=== PATIENT | female | born 1960 | race Hispanic/Latino ===

== ENCOUNTER → 2019-10-04 | Outpatient (CLI) | payer BC | END | disposition home or self-care (01) | LOC: SHCH 10:00 | PROVIDERS: ATTEND Internal Medicine Cardiovascular Disease | DX: I51.7 Cardiomegaly (principal); R01.1 Cardiac murmur, unspecified | CPT/HCPCS: 93306 ==

== ENCOUNTER → 2019-10-08 | Outpatient (CLI) | payer BC ==
[~2019-10-08] MED LIST: ACET1TAB25 PO; ASPI-1197 PO; CYAN-35 PO; ERGO500014 PO; FISH1CAP63 PO; FOLI1 PO; REGADENOSON 0.4 MG/5 ML PF SYG IVP SCH; ROSU10TA22 PO; SULF1TAB42 PO; UBID100C45 PO; VITAD50000 PO; folic acid PO; vitamin b12 PO
== END | disposition home or self-care (01) ==
LOC: SHCH 08:59
PROVIDERS: ATTEND Internal Medicine Cardiovascular Disease
DX: R01.1 Cardiac murmur, unspecified (principal)
CPT/HCPCS: 78452; 93017; 96374; A9500 ×2; J2785

== ENCOUNTER 2019-12-12 06:11 | Day surgery (SDC) | payer BC ==
[2019-12-11 13:31] VITALS: BP 117/52
[~2019-12-12] VITALS: Ht 162.6 cm; Wt 94.6 kg
[2019-12-12] VITALS (18 sets, daily range): BP systolic 102–135; BP diastolic 47–69
[~2019-12-12 06:11] MED LIST changes: -ACET1TAB25 PO; +CEFAZOLIN SODIUM 1 GM VIAL IVP SCH; -ERGO500014 PO; -FOLI1 PO; -REGADENOSON 0.4 MG/5 ML PF SYG IVP SCH; -SULF1TAB42 PO; -vitamin b12 PO
[2019-12-12] MEDS ORDERED: CEFAZOLIN SODIUM 1 GM VIAL ONE (06:22)
[2019-12-12] MEDS ORDERED: LACTATED RINGERS 1000ML 1,000 ML IV ONE (06:22)
[2019-12-12] MEDS ORDERED: ONDANSETRON HCL 4 MG/2 ML VIAL ONE ×2 (07:37→09:09)
[2019-12-12] MEDS ORDERED: PROPOFOL 10 MG/ML 20ML VIAL IV ONE (07:37)
[2019-12-12] MEDS ORDERED: LIDOCAINE PF 2% 5ML ABBOJECT ONE (07:37)
[2019-12-12] MEDS ORDERED: DEXAMETHASONE SOD PHOSPHATE 10MG/ML 1ML VIAL ONE ×2 (07:37→09:09)
[2019-12-12] MEDS ORDERED: MIDAZOLAM HCL 1 MG/ML 2ML VIAL ONE (07:37)
[2019-12-12] MEDS ORDERED: FENTANYL CITRATE PF 50 MCG/1 ML 2ML VIAL ONE ×2 (07:38→08:25)
[2019-12-12] MEDS ORDERED: GENTAMICIN SULFATE 80 MG/2 ML VIAL ONE (07:56)
[2019-12-12] MEDS ORDERED: EPHEDRINE SULFATE 50 MG/ML AMPULE ONE (08:13)
[2019-12-12] MEDS ORDERED: MEPERIDINE-PF 25 MG/ML SYG ONE ×2 (08:39→09:36)
[2019-12-12] MEDS ORDERED: SULF1TAB42 PO (09:14)
[2019-12-12] MEDS ORDERED: ACET1TAB25 PO (09:14)
[2019-12-12 12:40] LABS: BF LYMPHOCYTE 53 %; BF MESOTHELIAL 32 %; BF MONOCYTE 12 %
[2019-12-12 13:15] LABS: APPEARANCE BODY FLUID CLEAR (CLEAR); BODY FLUID RBC 323 /cu. mm.; BODY FLUID WBC 124 /cu. mm.; COLOR,BODY FLUID YELLOW (LT YELLOW); SPECIMENTYPE,BODY FLUID SYNOVIAL
[2019-12-12 20:56] LABS: CRYSTALS, SYNOVIAL FLUID SEE SEPARATE REPORT
== END 2019-12-12 11:14 | disposition home or self-care (01) ==
LOC: DAH 06:11
PROVIDERS: ATTEND Orthopaedic Surgery
DX: S83.242A Other tear of medial meniscus, current injury, left knee, initial encounter (principal); M22.42 Chondromalacia patellae, left knee; E66.01 Morbid (severe) obesity due to excess calories; Z68.35 Body mass index [BMI] 35.0-35.9, adult; E78.5 Hyperlipidemia, unspecified; G89.29 Other chronic pain; M25.462 Effusion, left knee; M17.12 Unilateral primary osteoarthritis, left knee; X58.XXXA Exposure to other specified factors, initial encounter; Y93.89 Activity, other specified; Y92.89 Other specified places as the place of occurrence of the external cause; Y99.8 Other external cause status; Z20.828 Contact with and (suspected) exposure to other viral communicable diseases
CPT/HCPCS: 29881; 87071; 87076; 87205; 89051; 89060; A4215; A4221; A4222; A4223; A4606; A4649 ×2; A4663; A4930 ×2; A5120; A6223; C9803; J0690; J1100 ×2; J1580; J2001; J2175 ×2; J2250; J2405 ×2; J2704; J3010 ×2; J3490; J7120 ×2; U0003

== ENCOUNTER 2019-12-16 17:46 | Inpatient (IN) | payer BC ==
[~2019-12-16] VITALS: Ht 160 cm; Wt 91.1 kg
[~2019-12-16 17:46] MED LIST changes: +ACET1TAB25 PO; -CEFAZOLIN SODIUM 1 GM VIAL IVP SCH; +SULF1TAB42 PO
[2019-12-16] MEDS ORDERED: ACETAMINOPHEN EXTRA STRENGTH 500 MG TABLET ONE (18:11)
[2019-12-16] MEDS ORDERED: ONDANSETRON HCL 4 MG/2 ML VIAL ONE (18:11)
[2019-12-16 18:24] LABS: APPEARANCE,URINE Cloudy (CLEAR); BASOPHILS % (AUTO) 0.2 % (0.0-5.0); BILIRUBIN,URINE Negative (NEGATIVE); COLOR,URINE Yellow (YELLOW); EOSINOPHILS % (AUTO) 5.5 % (0.0-8.0); GLUCOSE, URINE (UA) Negative (NEGATIVE); HEMATOCRIT 37.6 % (36-48); KETONES,URINE Negative (NEGATIVE); LEUKOCYTE ESTERASE ,URINE Negative (NEGATIVE); LYMPHOCYTES % (AUTO) 5.8 % (21.0-51.0); MEAN CORPUSCULAR HEMOGLOBIN 29.1 pg (27.0-33.0); MEAN CORPUSCULAR HGB CONC 33.2 g/dL (32.0-36.0); MEAN CORPUSCULAR VOLUME 87.6 fL (79-99); MONOCYTES % (AUTO) 5.5 % (3.0-13.0); NEUTROPHILS % (AUTO) 81.9 % (40.0-77.0); NITRATE,URINE Negative (NEGATIVE); OCCULT BLOOD,URINE Trace (NEGATIVE); PLATELET COUNT (AUTO) 182 K/uL (130-400); PROTEIN,URINE Negative (NEGATIVE); RED BLOOD CELL COUNT(AUTO) 4.29 MIL/uL (4.00-5.50); RED CELL DISTRIBUTION WIDTH 13.9 % (11.0-15.5); WHITE BLOOD COUNT (AUTO) 5.5 K/uL (4.8-10.8)
[2019-12-16 18:30] LABS: BACTERIA,URINE None Seen /HPF (None Seen); MUCUS,URINE Few LPF (None Seen); RBC,URINE 0-1 /HPF (0-1); SQUAMOUS EPITHELIAL CELL,UR 0-2 /HPF (0-2); WBC,URINE 0-1 /HPF (0-1)
[2019-12-16 18:37] LABS: CARBON DIOXIDE 24 mmol/L (21-32); CHLORIDE 101 mmol/L (101-111); CREATININE 0.8 mg/dL (0.5-1.5); GLOMERULAR FILTR. RATE CALC 78 mL/min (>60); GLUCOSE,RANDOM 161 mg/dL (70-105); POTASSIUM 4.1 mmol/L (3.5-5.1); SODIUM SERUM 137 mmol/L (136-145); UREA NITROGEN, BLOOD 6 mg/dL (7-18)
[2019-12-16 18:42] LABS: INR 0.99 (0.85-1.15); PARTIAL THROMBOPLASTIN TIME 29.3 SEC (26.3-35.5); PROTHROMBIN TIME 10.7 SEC (9.6-11.6)
[2019-12-16 18:48] LABS: ALANINE AMINOTRANSFERASE 42 U/L (12-78); ALBUMIN 4.3 g/dL (3.5-5.0); ASPARTATE AMINOTRANSFERASE 28 U/L (10-37); BILIRUBIN,TOTAL 0.5 mg/dL (0.2-1.0); CREATINE KINASE, TOTAL 33 U/L (21-232); MYOGLOBIN 25 ng/mL (10-92); TOTAL PROTEIN, SERUM 8.3 g/dL (6.0-8.3); TROPONIN I < 0.04 ng/mL (0.00-0.06)
[2019-12-16] MEDS ORDERED: DiphenhydrAMINE HCL 50 MG/ML VIAL ONE (19:25)
[2019-12-16] MEDS ORDERED: PROCHLORPERAZINE EDISYLATE 10 MG/2 ML VIAL ONE (19:26)
[2019-12-16] MEDS ORDERED: SODIUM CHLORIDE 0.9% 50 ML IV ONE (19:28)
[2019-12-16] MEDS ORDERED: LIDOCAINE HCL 1% 20 ML VIAL ONE (19:37)
[2019-12-16] MEDS ORDERED: CEFEPIME HCL 1 GM VIAL ONE (20:38)
[2019-12-16] MEDS ORDERED: MORPHINE SULFATE 2 MG/ML 1ML SYG IVP PRN (21:00)
[2019-12-16] MEDS ORDERED: COMPOUND IV REFRIGERATED 1 EACH IVSOLN MISC PRN (21:00)
[2019-12-16] MEDS ORDERED: ONDANSETRON 4 MG TABLET PO PRN (21:00)
[2019-12-16] MEDS ORDERED: VANCOMYCIN PROTOCOL PER PHARMACY IV SCH (21:00)
[2019-12-16] MEDS ORDERED: VANCOMYCIN 1.5 GM in SODIUM CHLORIDE 0.9% 250 ML IV SCH (21:00)
[2019-12-16] MEDS ORDERED: ACETAMINOPHEN 325 MG TAB PO PRN (21:00)
[2019-12-17] MEDS ORDERED: CEFEPIME HCL 1 GM VIAL ONE (03:53)
[2019-12-17] MEDS ORDERED: ACETAMINOPHEN 325 MG TAB ONE (03:53)
[2019-12-17 04:17] LABS: BASOPHILS % (AUTO) 0.2 % (0.0-5.0); EOSINOPHILS % (AUTO) 6.1 % (0.0-8.0); HEMATOCRIT 34.6 % (36-48); LYMPHOCYTES % (AUTO) 9.5 % (21.0-51.0); MEAN CORPUSCULAR HEMOGLOBIN 29.1 pg (27.0-33.0); MEAN CORPUSCULAR HGB CONC 32.9 g/dL (32.0-36.0); MEAN CORPUSCULAR VOLUME 88.3 fL (79-99); MONOCYTES % (AUTO) 7.8 % (3.0-13.0); NEUTROPHILS % (AUTO) 75.1 % (40.0-77.0); PLATELET COUNT (AUTO) 153 K/uL (130-400); RED BLOOD CELL COUNT(AUTO) 3.92 MIL/uL (4.00-5.50); RED CELL DISTRIBUTION WIDTH 14.2 % (11.0-15.5); WHITE BLOOD COUNT (AUTO) 4.7 K/uL (4.8-10.8)
[2019-12-17 04:32] LABS: CREATININE 0.7 mg/dL (0.5-1.5)
[2019-12-17 04:35] LABS: ALBUMIN 3.8 g/dL (3.5-5.0); BILIRUBIN,TOTAL 0.6 mg/dL (0.2-1.0); MAGNESIUM 2.1 mg/dL (1.80-2.40); TOTAL PROTEIN, SERUM 7.6 g/dL (6.0-8.3)
[2019-12-17] MEDS ORDERED: CEFEPIME HCL 1 GM VIAL IVP SCH (05:00)
[2019-12-17 05:42] LABS: ERYTHROCYTE SEDIMENTATION RATE 28 MM/HR (0-30)
[2019-12-17] MEDS ORDERED: FOLI1 PO (09:03)
[2019-12-17] MEDS ORDERED: ERGO500014 PO (09:03)
[2019-12-17 09:11] VITALS: BP 124/42
[2019-12-17] MEDS ORDERED: METHYLPREDNISOLONE SOD SUCC 40MG/ML 1ML IVP SCH (14:30)
[2019-12-17] MEDS: FAMOTIDINE 20MG TAB 20 MG TAB PO SCH ×2 (14:30→20:05)
[2019-12-17] MEDS ORDERED: FAMOTIDINE 20MG TAB 20 MG TAB ONE (15:00)
[2019-12-17] MEDS ORDERED: METHYLPREDNISOLONE SOD SUCC 40MG/ML 1ML ONE (15:00)
[2019-12-17] MEDS ORDERED: DIPHENHYDRAMINE HCL 25 MG CAPSULE ONE (15:01)
[2019-12-17 16:45] VITALS: BP 124/72
[2019-12-17 20:00] VITALS: BP 128/71
[2019-12-17] MEDS ORDERED: PHENOBARBITAL SODIUM 65 MG/ML ML ONE ×2 (22:02→22:03)
[2019-12-17] MEDS: DIPHENHYDRAMINE HCL 25 MG CAPSULE PO PRN (23:51)
[2019-12-18] VITALS: BP 117/70
[2019-12-18 04:00] VITALS: BP 111/58
[2019-12-18 08:00] VITALS: BP 125/52
[2019-12-18] MEDS: DIPHENHYDRAMINE HCL 25 MG CAPSULE PO PRN ×2 (09:12→17:43)
[2019-12-18] MEDS: FAMOTIDINE 20MG TAB 20 MG TAB PO SCH ×2 (09:14→20:45)
[2019-12-18] MEDS ORDERED: METHYLPREDNISOLONE SOD SUCC 40MG/ML 1ML IVP SCH (11:00)
[2019-12-18 12:00] VITALS: BP 133/63
--- NOTE | 2019-12-18 13:48 | NUR ---
PROSPER- W PATIENT AT [facility], PATIENT LIVES W SPOUSE, IS ACTIVE, EMPLOYED, INDEPENDENT, NO DME EXCEPT CRUTCHES AT THIS TIME SECOND TO ARTHROSCOPY, EMPLOYED, DRIVES, HOME SAFE AND ACCESSIBLE, SPOUSE TO DRIVE HOME, ROVERTO TO FOLLOW Addendum: 12/18/19 at 1350 by MIGUEL SALAZAR RN CM Amended: Links added.
[2019-12-18 16:17] VITALS: BP 137/79
--- NOTE | 2019-12-18 16:47 | NUR ---
WOUND CARE WOUND CARE TO LEFT KNEE, CLEAN WITH BETADINE, COVER WITH BANDAID, PATIENT TOLERATED WITHOUT INCIDENT.
[2019-12-18 20:22] VITALS: BP 145/83
[2019-12-19] VITALS: BP 118/78
[2019-12-19] MEDS: DIPHENHYDRAMINE HCL 25 MG CAPSULE PO PRN (02:26)
[2019-12-19 04:25] VITALS: BP 106/52
[2019-12-19 05:47] LABS: MEAN CORPUSCULAR HEMOGLOBIN 28.9 pg (27.0-33.0); MEAN CORPUSCULAR HGB CONC 32.4 g/dL (32.0-36.0); MEAN CORPUSCULAR VOLUME 89.2 fL (79-99); RED BLOOD CELL COUNT(AUTO) 3.81 MIL/uL (4.00-5.50); RED CELL DISTRIBUTION WIDTH 13.8 % (11.0-15.5); WHITE BLOOD COUNT (AUTO) 6.1 K/uL (4.8-10.8)
[2019-12-19 06:18] LABS: ALBUMIN 3.5 g/dL (3.5-5.0); BILIRUBIN,TOTAL 0.3 mg/dL (0.2-1.0); CREATININE 0.6 mg/dL (0.5-1.5); MAGNESIUM 2.1 mg/dL (1.80-2.40); POTASSIUM 3.6 mmol/L (3.5-5.1); TOTAL PROTEIN, SERUM 7.4 g/dL (6.0-8.3)
[2019-12-19 08:28] VITALS: BP 118/61
[2019-12-19] MEDS: FAMOTIDINE 20MG TAB 20 MG TAB PO SCH (08:31)
[2019-12-19 11:00] VITALS: BP 125/76
[2019-12-19 15:00] VITALS: BP 137/76
--- NOTE | 2019-12-19 15:42 | NUR ---
DISCHARGE INSTRUCTIONS GIVEN TO PATIENT MADE AWARE OF FOLLOW UP APPOINTMENT WITH DR SHIN. AWARE OF INCISIONAL CARE WITH BETADINE AND BANDAID DAILY. PATIENT CURRENTLY HAS MINOR SWELLING AND REDNESS TO LEFT KNEE. DENIES PAIN. AMBULATING WITH CRUTCHES. IV REMOVED. ALL QUESTIONS ANSWERED.
== END 2019-12-19 16:15 | disposition home or self-care (01) | DRG 864 ==
LOC: EDH 17:46 → EDHIP 20:20 → 3AH 23:17 → EDHIP 23:37 → 4BH 12-17 08:47
PROVIDERS: ADMIT Internal Medicine Infectious Disease; ATTEND Internal Medicine Infectious Disease
DX: R50.82 Postprocedural fever (principal); R21 Rash and other nonspecific skin eruption; E78.5 Hyperlipidemia, unspecified; I10 Essential (primary) hypertension; R53.81 Other malaise; M19.90 Unspecified osteoarthritis, unspecified site; T36.8X5A Adverse effect of other systemic antibiotics, initial encounter; Z68.35 Body mass index [BMI] 35.0-35.9, adult; Y92.89 Other specified places as the place of occurrence of the external cause; Z88.6 Allergy status to analgesic agent; Z88.8 Allergy status to other drugs, medicaments and biological substances; Z88.5 Allergy status to narcotic agent; Z90.721 Acquired absence of ovaries, unilateral
CPT/HCPCS: 36415; 70450; 71045; 73562; 80053; 81001; 82550; 83605; 83735; 83874; 84145; 84484; 85025; 85027; 85610; 85651; 85730; 86900; 86901; 87040; 87088; 87426; 93005; G0378; J0692; J0780; J1200; J2405; J2560; J2920; J3370; J7050; Q0163; U0003

== ENCOUNTER → 2020-11-06 | Outpatient (CLI) | payer BC ==
[~2020-11-06] MED LIST changes: -ACET1TAB25 PO; +ERGO500093 PO; +FOLI1 PO; -SULF1TAB42 PO; -VITAD50000 PO; -folic acid PO
== END | disposition home or self-care (01) ==
LOC: RAH 10:27
PROVIDERS: ATTEND Internal Medicine Nephrology
DX: R16.0 Hepatomegaly, not elsewhere classified (principal)
CPT/HCPCS: 76705

== ENCOUNTER → 2023-02-05 | Outpatient (CLI) | payer BC | END | disposition home or self-care (01) | LOC: RAH 13:43 | PROVIDERS: ATTEND Internal Medicine Nephrology | DX: Z12.31 Encounter for screening mammogram for malignant neoplasm of breast (principal) | CPT/HCPCS: 77067 ==

== ENCOUNTER → 2024-02-29 | Outpatient (CLI) | payer BC ==
--- NOTE | 2024-03-01 10:30 | HMCIMG ---
MAMMO SCREENING BILATERAL HISTORY: Screening mammogram. COMPARISON: 02/05/2023 TECHNIQUE: Bilateral screening mammogram with CAD was performed with craniocaudal and mediolateral oblique projections. FINDINGS: The breasts are heterogeneous dense, which may obscure small masses. There is no evidence of a dominant mass, or suspicious microcalcification. There is no evidence of nipple retraction or skin thickening. IMPRESSION: 1. Stable mammogram. Patient was entered into a reminder system with a target due date for their next mammogram. BI-RADS: CATEGORY 2: BENIGN FINDINGS Recommend monthly self breast exam as well as annual clinical examination. A negative x-ray should not delay biopsy if a dominant or clinically suspicious mass is present, since 8-10% of cancers are not identified by mammography. Dense breasts particularly, may obscure an underlying neoplasm. Some of these may be detected clinically and therefore, clinical examination is an essential part of breast evaluation.
== END | disposition home or self-care (01) ==
LOC: RAH 13:17
PROVIDERS: ATTEND Internal Medicine Nephrology
DX: Z12.31 Encounter for screening mammogram for malignant neoplasm of breast (principal); R92.333 Mammographic heterogeneous density, bilateral breasts
CPT/HCPCS: 77067

== ENCOUNTER → 2024-03-19 | Outpatient (CLI) | payer BC ==
--- NOTE | 2024-03-19 10:07 | HMCIMG ---
US ABDOMINAL COMPLETE REASON: luq pain COMPARISON: None FINDINGS: There is moderate hepatic steatosis. There are no focal mass lesions. Liver is enlarged at 20 cm.There is a normal-appearing gallbladder. There is a 2.4 cm right renal cyst. Kidneys appear otherwise normal in size and appearance. There is no evidence of mass, stone or hydronephrosis. Spleen and common duct appear normal. Aorta and inferior vena cava appear normal. The pancreas appears normal as well. IMPRESSION: 1. Moderate hepatic steatosis, the liver is also enlarged at 20 cm. 2. 2.4 cm right renal cyst. 3. No acute finding on abdomen sonogram with particular attention to the left upper quadrant.
== END | disposition home or self-care (01) ==
LOC: RAH 08:49
PROVIDERS: ATTEND Internal Medicine Nephrology
DX: N28.1 Cyst of kidney, acquired (principal); R10.12 Left upper quadrant pain; K76.0 Fatty (change of) liver, not elsewhere classified
CPT/HCPCS: 76700

== ENCOUNTER → 2025-02-11 | Outpatient (CLI) | payer OTHER ==
--- NOTE | 2025-02-12 06:59 | HMCIMG ---
EXAMINATION: SOFT TISSUE ULTRASOUND OF THE RIGHT UPPER ARM. CLINICAL HISTORY: Palpable swelling. COMPARISON: None. TECHNIQUE: Transverse and longitudinal images were obtained in the right upper arm. FINDINGS: There are well-defined hyperechoic lesions that measure 7.2 x 3.5 x 5.8 cm, 2.1 x 0.9 x 1.3 cm, 4.6 x 2.7 x 4.5 cm, and 2.3 x 0.8 x 1.0 cm in craniocaudal, AP, and transverse dimensions respectively. The lesions are seen in the subcutaneous plane of the right upper arm. No vascularity. IMPRESSION: Hyperechoic lesions in the right upper arm may reflect subcutaneous lipomas. Contrast enhanced MR may be considered. /[place]
== END | disposition home or self-care (01) ==
LOC: RAH 10:11
PROVIDERS: ATTEND Family Medicine
DX: R22.31 Localized swelling, mass and lump, right upper limb (principal)
CPT/HCPCS: 76882

== ENCOUNTER → 2025-03-12 | Outpatient (CLI) | payer OTHER ==
[~2025-03-12] MED LIST changes: +GADOTERATE MEGLUMINE 10 MMOL/20 ML VIAL IV ONE
--- NOTE | 2025-03-12 22:22 | HMCIMG ---
EXAM: MR right Upper Extremity with and without Intravenous Contrast, Humerus. CLINICAL HISTORY: R22.31 Localized swelling, mass and lump, right upper limb. TECHNIQUE: Multisequence, multiplanar magnetic resonance images of the right humerus were obtained before and after intravenous contrast administration. Series acquired: 9 - COR PD FS - TR: 1979.0 - TE: 24.0 - ET: 8.0 - Thk: 5.0 10 - COR STIR - TR: 3979.0 - TE: 48.6 - ET: 10.0 - Thk: 5.0 11 - SAG T2 - TR: 4147.0 - TE: 65.4 - ET: 15.0 - Thk: 5.0 12 - SAG STIR - TR: 3397.0 - TE: 48.2 - ET: 10.0 - Thk: 5.0 13 - SAG T1 - TR: 669.0 - TE: 11.6 - ET: 4.0 - Thk: 5.0 15 - AX STIR - TR: 5510.0 - TE: 46.4 - ET: 21.0 - Thk: 6.0 16 - AX T1 - TR: 610.0 - TE: 18.0 - ET: 3.0 - Thk: 6.0 17 - AX T2 - TR: 4116.0 - TE: 70.1 - ET: 17.0 - Thk: 6.0 18 - AX 2D MERGE - TR: 772.0 - TE: 16.4 - ET: 4.0 - Thk: 6.0 19 - G+ AX T1 FS - TR: 587.0 - TE: 18.0 - ET: 9.0 - Thk: 6.0 20 - G+ SAG T1 - TR: 540.0 - TE: 11.6 - ET: 5.0 - Thk: 5.0 21 - G+ COR T1 FS - TR: 566.0 - TE: 13.0 - ET: 8.0 - Thk: 5.0 23 - G+ COR T1 FS - TR: 566.0 - TE: 13.0 - ET: 8.0 - Thk: 5.0 CONTRAST: Intravenous gadolinium-based contrast administered (dose per protocol). COMPARISON: None provided. FINDINGS: SOFT TISSUES: An intramuscular mass is seen within the long head of the biceps brachii, measuring approximately 5.5 x 3.8 x 12.8 cm. The lesion is predominantly homogeneous fat signal intensity on T1- and T2-weighted images, with signal loss on fat-suppressed sequences and a thin capsule. Post-contrast images demonstrate only a few thin internal enhancing septations without nodular or solid enhancing components. Margins are well defined, and the lesion interdigitates with muscle fibers, compatible with an intramuscular lipomatous tumor. Fat planes with the adjacent neurovascular bundle are preserved, with no encasement or displacement of major vessels or nerves. No surrounding edema or inflammatory change is identified. JOINTS: Shoulder and elbow joints are normally aligned without dislocation or significant effusion. BONES: No acute fracture, cortical destruction, or aggressive bone marrow lesion is identified in the humerus or adjacent osseous structures. 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 Correlation with clinical examination is recommended, and if there is interval growth, pain, or functional limitation, follow-up MRI or surgical/oncologic consultation with possible tissue sampling may be considered if clinically warranted. * No acute osseous abnormality or additional soft-tissue mass identified in the right humerus. /[place]
== END | disposition home or self-care (01) ==
LOC: RAH 14:49
PROVIDERS: ATTEND Family Medicine
DX: R22.31 Localized swelling, mass and lump, right upper limb (principal)
CPT/HCPCS: 73220; A9575

== ENCOUNTER → 2025-03-13 | Outpatient (CLI) | payer OTHER ==
[~2025-03-13] MED LIST changes: -GADOTERATE MEGLUMINE 10 MMOL/20 ML VIAL IV ONE
== END | disposition home or self-care (01) ==
LOC: RAH 14:31
PROVIDERS: ATTEND Family Medicine
DX: Z12.31 Encounter for screening mammogram for malignant neoplasm of breast (principal)
CPT/HCPCS: 77067